=== PATIENT | male | born 1980 | race Hispanic/Latino ===

== ENCOUNTER 2022-07-17 19:27 | Emergency (ER) | payer SELFPAY ==
[~2022-07-17 19:27] MED LIST: Iopamidol-370 76% 500 ML MDV (1 ML CHARGE) ONE
[2022-07-17 21:48] LABS: Bacteria/HPF 1+ HPF (None Seen); Bilirubin Negative (Negative); Blood, Urine Negative (Negative); Clarity Turbid (Clear); Glucose, Urine (Dipstick) Normal (Negative); Ketone, Urine Negative (Negative); Leukocyte Negative Leu/uL (Negative); Nitrite Negative (Negative); Protein, Urine (Dipstick) 30 mg/dL (Neg-Trace); RBC/HPF None Seen HPF (0-3); Specific Gravity, Urine 1.032 (1.002-1.036); Squamous Epithelial None Seen HPF (0-3); Urobilinogen Normal mg/dL (Less than 2); WBC/HPF None Seen HPF (0-3)
[2022-07-17 22:07] LABS: #Lymphocytes 1.2 thou/uL (1.20-3.40); #Monocytes 0.3 thou/uL (0.11-0.59); #Neutrophils 7.2 thou/uL (1.40-6.50); %Basophils 0.2 % (0.0-1.0); %Eosinophils 0.3 % (0.0-10.0); %Lymphocytes 13.8 % (21.0-51.0); %Monocytes 3.2 % (0.0-10.0); %Neutrophils 82.5 % (42.0-75.0); Hemoglobin 16.1 g/dL (14.0-18.0); Mean Corpuscular HGB CONC 34.2 g/dL (32.0-36.0); Mean Corpuscular Hemoglobin 31.3 pg (27.0-31.0); Mean Corpuscular Volume 91.7 fl (78.0-98.0); Mean Platelet Volume 6.9 fL (7.4-10.4); Platelet Count 245 10x3/uL (130-400); RBC Distribution Width 12.2 % (11.5-14.5); Red Blood Cell (RBC) Count 5.13 mill/uL (4.70-6.10); White Blood Cell (WBC) Count 8.7 10x3/uL (4.8-10.8)
[2022-07-17 22:36] LABS: ALT (SGPT) 41 U/L (8-55); AST (SGOT) 19 U/L (5-34); Albumin 4.8 g/dL (3.5-5.0); Alkaline Phosphatase 62 U/L (40-110); Anion Gap 15 mmol/L (10-20); BUN (Urea Nitrogen) 9 mg/dL (8.9-20.6); Bilirubin, Total 0.3 mg/dL (0.2-1.2); Calc. Creatinine Clearance 0 mL/min (70-130); Calcium 9.5 mg/dL (7.8-10.44); Carbon Dioxide 20 mmol/L (22-29); Chloride 103 mmol/L (98-107); Estimated GFR 112; Globulin 4.2 g/dL (2.4-3.5); Glucose 117 mg/dL (70-105); Lipase 27 U/L (8-78); Potassium 4.3 mmol/L (3.5-5.1); Sodium 134 mmol/L (136-145)
[2022-07-17] MEDS ORDERED: Ketorolac Tromethamine 30 MG/ML VIAL ONE (23:03)
[2022-07-17] MEDS ORDERED: Ondansetron PF 4 MG/2 ML Vial ONE (23:03)
[2022-07-18] MEDS ORDERED: cefTRIAXone (ROCEPHIN) 500 MG VIAL ONE (01:03)
[2022-07-18 01:14] LABS: Lactic Acid 4.1 mmol/L (0.5-2.2)
== END 2022-07-18 01:16 | disposition home or self-care (01) ==
LOC: ERS 19:27
DX: N30.00 Acute cystitis without hematuria (principal)
CPT/HCPCS: 36415; 74174; 80053; 81003; 81015; 83605; 83690; 85025; 87086; 93005; 96372; 96374; 96375; J0696; J1885; J2405; Q9967